=== PATIENT | male | born 1975 | race Caucasian/White ===

== ENCOUNTER 2017-10-24 10:06 | Emergency (ER) | payer OTHER ==
[~2017-10-24 10:06] MED LIST: METO25TA4 PO; [UNRECOGNIZED DRUG - REMARK]
[2017-10-24] MEDS ORDERED: ASPIRIN 81 MG TAB.CHEW PO ONE (10:30)
--- NOTE | 2017-10-24 10:35 | EKG ---
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 RI6.01 Electronically Signed On 10-27-2017 9:57:43 RETRIMMER by Bishop Rudd
[2017-10-24 10:40] LABS: BASO # 0.1 x10^3/uL (0.0-0.2); BASO % 1 % (0-3); EOS # 0.3 x10^3/uL (0.0-0.7); EOS % 4 % (0-3); HEMOGLOBIN 16.3 g/dL (13.0-17.5); LYMPH # 1.8 x10^3/uL (1.0-4.8); LYMPH % 22 % (24-48); MEAN CORPUSCULAR HEMOGLOBIN 30 pg (25-35); MEAN CORPUSCULAR HGB CONC 35 g/dL (31-37); MEAN CORPUSCULAR VOLUME 85 fL (79-100); MONO # 0.6 x10^3/uL (0.0-1.1); MONO % 8 % (0-9); NEUT # 5.3 x10^3uL (1.8-7.7); NEUT % 66 % (31-73); PLATELET COUNT 195 x10^3/uL (140-400); RED BLOOD COUNT 5.44 x10^6/uL (4.30-5.70); RED CELL DISTRIBUTION WIDTH 15.1 % (11.5-14.5); WHITE BLOOD COUNT 8.1 x10^3/uL (4.0-11.0)
[2017-10-24 11:02] LABS: CALCIUM 8.5 mg/dL (8.5-10.1); GFR 81.9; POTASSIUM 3.2 mmol/L (3.5-5.1)
--- NOTE | 2017-10-24 11:54 | RAD ---
EXAM: Chest 2 views. HISTORY: Chest pain, shortness of breath. COMPARISON: 12/07/2010. FINDINGS: Frontal and lateral views of the chest are obtained. There are no confluent infiltrates. There is no pneumothorax or pleural effusion. The heart is not enlarged. IMPRESSION: 1. No confluent infiltrates.
[2017-10-24] MEDS ORDERED: HEPARIN for IV BOLUS 10,000 UNIT/10 ML VIAL. IV ONE (12:00)
[2017-10-24] MEDS ORDERED: HEPARIN 25,000UTS/500ML PREMIX 500 ML IV PRN (12:00)
[2017-10-24] MEDS ORDERED: HEPARIN for IV BOLUS 10,000 UNIT/10 ML VIAL. IV PRN ×2 (12:00)
[2017-10-24 13:06] VITALS: BP 179/99
[2017-10-24] MEDS ORDERED: METOPROLOL TARTRATE 5 MG/5 ML VIAL. IV ONE (13:15)
--- NOTE | 2017-10-24 13:28 | PHYS DOC ---
Past History Past Medical History: Hypertension Past Surgical History: No Surgical History Smoking: Chew Alcohol Use: Occasionally Drug Use: None Adult General Chief Complaint Chief Complaint: CHEST PAIN HPI HPI Patient is a 41 year old M who presents with constant left-sided chest pressure associated with shortness of breath that started 2 days ago. He feels that his symptoms are worse with activity and improved with rest. He was a smoker but quit 15 years ago. His significant family history of heart disease with all immediate family members having heart attacks or heart disease diagnosed in the 40s or 50s. He does take blood pressure medications and is overweight. He has no other associated symptoms at this time. His no other exacerbating or relieving factors. Review of Systems Review of Systems Constitutional: Denies fever or chills [] Eyes: Denies change in visual acuity, redness, or eye pain [] HENT: Denies nasal congestion or sore throat [] Respiratory: Denies cough or shortness of breath [] Cardiovascular: No additional information not addressed in HPI [] GI: Denies abdominal pain, nausea, vomiting, bloody stools or diarrhea [] : Denies dysuria or hematuria [] Musculoskeletal: Denies back pain or joint pain [] Integument: Denies rash or skin lesions [] Neurologic: Denies headache, focal weakness or sensory changes [] Endocrine: Denies polyuria or polydipsia [] All other systems were reviewed and found to be within normal limits, except as documented in this note. Family History Family History Significant family medical history of cardiac disease Current Medications Current Medications Current Medications Medications (Trade) Dose Ordered Sig/Morales Start Time Stop Time Status Last Admin Dose Admin Aspirin (Children'S Aspirin) 324 mg 1X ONCE 10/24/17 10:30 10/24/17 10:41 DC 10/24/17 10:32 324 MG Heparin Sodium (Porcine) (Heparin Sodium) 1,000 unit PRN Q6HRS PRN 10/24/17 12:00 Heparin Sodium/ Dextrose 500 ml @ 0 mls/hr CONT PRN 10/24/17 12:00 10/24/17 12:54 36 MLS/HR Metoprolol Tartrate (Lopressor Vial) 5 mg 1X ONCE 10/24/17 13:15 10/24/17 13:16 DC 10/24/17 13:05 4 MG Allergies Allergies Allergies Coded Allergies Type Severity Reaction Last Updated Verified No Known Drug Allergies 08/27/13 No Physical Exam Physical Exam Constitutional: Well developed, well nourished, no acute distress, non-toxic appearance. [] HENT: Normocephalic, atraumatic, Eyes: EOMI, conjunctiva normal, no discharge. [] Neck: Normal range of motion, no tenderness, supple, no stridor. [] Cardiovascular:Heart rate regular rhythm, no murmur [] Lungs & Thorax: Bilateral breath sounds clear to auscultation [] Abdomen: Bowel sounds normal, soft, no tenderness, no masses, no pulsatile masses. [] Skin: Warm, dry, no erythema, no rash. [] Extremities: No tenderness, no cyanosis, no clubbing, ROM intact, no edema. [] Neurologic: Alert and oriented X 3, normal motor function, normal sensory function, no focal deficits noted. [] Psychologic: Affect normal, judgement normal, mood normal. [] Current Patient Data Vital Signs Vital Signs Date Time Temp Pulse Resp B/P (MAP) Pulse Ox O2 Delivery O2 Flow Rate FiO2 10/24/17 13:05 87 189/113 10/24/17 10:10 98.0 16 96 Room Air Lab Results Laboratory Tests Test 10/24/17 10:20 10/24/17 12:12 White Blood Count 8.1 x10^3/uL (4.0-11.0) Red Blood Count 5.44 x10^6/uL (4.30-5.70) Hemoglobin 16.3 g/dL (13.0-17.5) Hematocrit 46.0 % (39.0-53.0) Mean Corpuscular Volume 85 fL (79-100) Mean Corpuscular Hemoglobin 30 pg (25-35) Mean Corpuscular Hemoglobin Concent 35 g/dL (31-37) Red Cell Distribution Width 15.1 % (11.5-14.5) H Platelet Count 195 x10^3/uL (140-400) Neutrophils (%) (Auto) 66 % (31-73) Lymphocytes (%) (Auto) 22 % (24-48) L Monocytes (%) (Auto) 8 % (0-9) Eosinophils (%) (Auto) 4 % (0-3) H Basophils (%) (Auto) 1 % (0-3) Neutrophils # (Auto) 5.3 x10^3uL (1.8-7.7) Lymphocytes # (Auto) 1.8 x10^3/uL (1.0-4.8) Monocytes # (Auto) 0.6 x10^3/uL (0.0-1.1) Eosinophils # (Auto) 0.3 x10^3/uL (0.0-0.7) Basophils # (Auto) 0.1 x10^3/uL (0.0-0.2) Sodium Level 142 mmol/L (136-145) Potassium Level 3.2 mmol/L (3.5-5.1) L Chloride Level 106 mmol/L (98-107) Carbon Dioxide Level 29 mmol/L (21-32) Anion Gap 7 (6-14) Blood Urea Nitrogen 13 mg/dL (8-26) Creatinine 1.0 mg/dL (0.7-1.3) Estimated GFR (Cockcroft-Gault) 81.9 Glucose Level 263 mg/dL (70-99) H Calcium Level 8.5 mg/dL (8.5-10.1) Creatine Kinase 92 U/L (39-308) Creatine Kinase MB (Mass) 0.9 ng/mL (0.0-3.6) Creatine Kinase MB Relative Index 1.0 % (0-4) Troponin I Quantitative < 0.017 ng/mL (0-0.055) Prothrombin Time 10.3 SEC (9.4-11.4) Prothrombin Time INR 1.0 (0.9-1.1) PTT 23 SEC (23-33) EKG EKG Sinus rhythm with T-wave inversion in lead 1 and aVL. J-point changes noted throughout with elevation noted in the precordial leads particularly V1, V2, V3 and mildly in V4. Normal QRS interval. Radiology/Procedures Radiology/Procedures Chest x-ray Impressions: No acute disease Course & Med Decision Making Course & Med Decision Making Pertinent Labs and Imaging studies reviewed. (See chart for details) Cardiology was contacted by phone. His case was reviewed. Heparin was recommended. He was started on heparin per protocol and transfer to [place] in stable condition for further management. Dragon Disclaimer Dragon Disclaimer This electronic medical record was generated, in whole or in part, using a voice recognition dictation system. Departure Departure: Impression: Primary Impression: Unstable angina Disposition: 05 XFER OTHER Condition: STABLE Referrals: LLOYD SCHULER APRN (PCP) ORLY MORROW MD Oct 24, 2017 13:28
== END 2017-10-24 13:10 | disposition short-term general hospital (02) ==
LOC: ER 10:06
DX: I20.0 Unstable angina (principal); I10 Essential (primary) hypertension; F17.220 Nicotine dependence, chewing tobacco, uncomplicated
CPT/HCPCS: 36415; 71046; 80048; 82553; 84484; 85025; 85610; 85730; 93005; 96365; 96375; 96376; 99285; J1644; J3490

== ENCOUNTER 2019-09-07 18:33 | Inpatient (IN) | payer OTHER ==
[~2019-09-07] VITALS: Ht 175.3 cm; Wt 139.9 kg
[2019-09-07] MEDS ORDERED: NITROGLYCERIN SUBLINGUAL 0.4 MG BOTTLE OF 25. SL STA (19:04)
[2019-09-07] MEDS ORDERED: ASPIRIN 81 MG TAB.CHEW PO ONE (19:15)
[2019-09-07] MEDS ORDERED: FUROSEMIDE 40 MG/4 ML VIAL IVP ONE (19:30)
--- NOTE | 2019-09-07 19:40 | RAD ---
CHEST PA LATERAL Technique: PA and lateral views of the chest were obtained. Clinical History: Comparison: None. Findings: The heart and pulmonary vasculature appear within normal limits. Linear opacities in the lung bases are likely discoid atelectasis. The pleural margins are clear. Impression: No acute chest process is seen. Electronically signed by: Momo Rojo III, MD (09/07/2019 7:38 PM) [employer]
[2019-09-07 19:45] LABS: ALBUMIN 3.7 g/dL (3.4-5.0); ALBUMIN/GLOBULIN RATIO 0.9 (1.0-1.7); BASO # 0.1 x10^3/uL (0.0-0.2); BASO % 1 % (0-3); CALCIUM 8.9 mg/dL (8.5-10.1); CREATININE 0.9 mg/dL (0.7-1.3); EOS # 0.2 x10^3/uL (0.0-0.7); EOS % 3 % (0-3); GFR 91.7; HEMATOCRIT 48.1 % (39.0-53.0); HEMOGLOBIN 16.8 g/dL (13.0-17.5); LYMPH # 2.2 x10^3/uL (1.0-4.8); LYMPH % 25 % (24-48); MEAN CORPUSCULAR HEMOGLOBIN 30 pg (25-35); MEAN CORPUSCULAR HGB CONC 35 g/dL (31-37); MEAN CORPUSCULAR VOLUME 87 fL (79-100); MONO # 0.7 x10^3/uL (0.0-1.1); MONO % 7 % (0-9); NEUT # 5.7 x10^3uL (1.8-7.7); NEUT % 65 % (31-73); PLATELET COUNT 219 x10^3/uL (140-400); RED BLOOD COUNT 5.53 x10^6/uL (4.30-5.70); RED CELL DISTRIBUTION WIDTH 15.1 % (11.5-14.5); TOTAL BILIRUBIN 0.7 mg/dL (0.2-1.0); TOTAL PROTEIN 7.6 g/dL (6.4-8.2); WHITE BLOOD COUNT 8.9 x10^3/uL (4.0-11.0)
[2019-09-07 19:47] LABS: POTASSIUM 2.9 mmol/L (3.5-5.1)
[2019-09-07] MEDS ORDERED: POTASSIUM CHLORIDE 20 MEQ TABLET.ER. PO ONE ×2 (19:51→20:00)
--- NOTE | 2019-09-07 20:47 | PHYS DOC ---
Past History Past Medical History: High Cholesterol, Hypertension, Other Additional Past Medical Histor: PERIPHERAL EDEMA Past Surgical History: No Surgical History Smoking: Chew Alcohol Use: Occasionally Drug Use: None Adult General Chief Complaint Chief Complaint: SHORTNESS OF BREATH HPI HPI Patient is a 43-year-old male who presented to ER today for evaluation of chest pain, trouble breathing since yesterday. Patient felt like someone sitting on her chest. Patient has history hypertension, history of CHF, he is on Lasix for. She has history hypertension, denies history of diabetes, no cough, no fever. Patient denies any recent travel, no recent operation. Patient also said his blood pressure has been elevated even he took his blood pressure medication only. All other ROS is negative unless otherwise noted in HPI Review of Systems Review of Systems See above Current Medications Current Medications Current Medications Medications (Trade) Dose Ordered Sig/Morales Start Time Stop Time Status Last Admin Dose Admin Aspirin (Children'S Aspirin) 324 mg 1X ONCE 09/07/19 19:15 09/07/19 19:17 DC 09/07/19 19:24 324 MG Furosemide (Lasix) 60 mg 1X ONCE 09/07/19 19:30 09/07/19 19:31 DC 09/07/19 19:43 60 MG Nitroglycerin (Nitrostat) 0.4 mg PRN Q5MIN STAT 09/07/19 19:04 09/07/19 19:17 DC 09/07/19 19:25 0.4 MG Potassium Chloride (Klor-Con) 20 meq STK-MED ONCE 09/07/19 19:51 09/07/19 19:52 DC Allergies Allergies Allergies Coded Allergies Type Severity Reaction Last Updated Verified No Known Drug Allergies 08/27/13 No Physical Exam Physical Exam See above Constitutional: Well developed, well nourished, no acute distress, non-toxic appearance. OBESE. HENT: Normocephalic, atraumatic, bilateral external ears normal, oropharynx moist, no oral exudates, nose normal. [] Eyes: PERRLA, EOMI, conjunctiva normal, no discharge. [] Neck: Normal range of motion, no tenderness, supple, no stridor. [] Cardiovascular:Heart rate regular rhythm, no murmur [] Lungs & Thorax: Bilateral breath sounds clear to auscultation [] Abdomen: Bowel sounds normal, soft, no tenderness, no masses, no pulsatile masses. [] Skin: Warm, dry, no erythema, no rash. [] Back: No tenderness, no CVA tenderness. [] Extremities: No tenderness, no cyanosis, no clubbing, ROM intact, bilateral lower extremities with pitting edema. [] Neurologic: Alert and oriented X 3, normal motor function, normal sensory function, no focal deficits noted. [] Psychologic: Affect normal, judgement normal, mood normal. [] Current Patient Data Vital Signs Vital Signs Date Time Temp Pulse Resp B/P (MAP) Pulse Ox O2 Delivery O2 Flow Rate FiO2 09/07/19 19:26 65 22 202/116 (144) 95 Room Air 09/07/19 18:56 98.1 Lab Results Laboratory Tests Test 09/07/19 19:12 White Blood Count 8.9 x10^3/uL (4.0-11.0) Red Blood Count 5.53 x10^6/uL (4.30-5.70) Hemoglobin 16.8 g/dL (13.0-17.5) Hematocrit 48.1 % (39.0-53.0) Mean Corpuscular Volume 87 fL (79-100) Mean Corpuscular Hemoglobin 30 pg (25-35) Mean Corpuscular Hemoglobin Concent 35 g/dL (31-37) Red Cell Distribution Width 15.1 % (11.5-14.5) H Platelet Count 219 x10^3/uL (140-400) Neutrophils (%) (Auto) 65 % (31-73) Lymphocytes (%) (Auto) 25 % (24-48) Monocytes (%) (Auto) 7 % (0-9) Eosinophils (%) (Auto) 3 % (0-3) Basophils (%) (Auto) 1 % (0-3) Neutrophils # (Auto) 5.7 x10^3uL (1.8-7.7) Lymphocytes # (Auto) 2.2 x10^3/uL (1.0-4.8) Monocytes # (Auto) 0.7 x10^3/uL (0.0-1.1) Eosinophils # (Auto) 0.2 x10^3/uL (0.0-0.7) Basophils # (Auto) 0.1 x10^3/uL (0.0-0.2) Prothrombin Time 10.4 SEC (9.4-11.4) Prothrombin Time INR 1.0 (0.9-1.1) Activated Partial Thromboplast Time 23 SEC (23-33) Sodium Level 144 mmol/L (136-145) Potassium Level 2.9 mmol/L (3.5-5.1) *L Chloride Level 104 mmol/L (98-107) Carbon Dioxide Level 31 mmol/L (21-32) Anion Gap 9 (6-14) Blood Urea Nitrogen 11 mg/dL (8-26) Creatinine 0.9 mg/dL (0.7-1.3) Estimated GFR (Cockcroft-Gault) 91.7 BUN/Creatinine Ratio 12 (6-20) Glucose Level 118 mg/dL (70-99) H Calcium Level 8.9 mg/dL (8.5-10.1) Magnesium Level 2.0 mg/dL (1.8-2.4) Total Bilirubin 0.7 mg/dL (0.2-1.0) Aspartate Amino Transferase (AST) 76 U/L (15-37) H Alanine Aminotransferase (ALT) 152 U/L (16-63) H Alkaline Phosphatase 59 U/L (46-116) Troponin I Quantitative 0.024 ng/mL (0-0.055) RG-Bao-F-Type Natriuretic Peptide 391 pg/mL (0-124) H Total Protein 7.6 g/dL (6.4-8.2) Albumin 3.7 g/dL (3.4-5.0) Albumin/Globulin Ratio 0.9 (1.0-1.7) L Lipase 101 U/L (73-393) EKG EKG ekg rate of 62 bpm, sinus rhythm, no stemi.[] Radiology/Procedures Radiology/Procedures [][address] [address] IMAGING REPORT Signed PATIENT: KRISSY CASTELLON ACCOUNT: [id number] : 1975 LOCATION: ER AGE: 43 SEX: M EXAM STATUS: REG ER ORD. PHYSICIAN: ORLY TRAVIS DO REASON: Short of air, cough PROCEDURE: CHEST PA & LATERAL CHEST PA LATERAL Technique: PA and lateral views of the chest were obtained. Clinical History: Comparison: None. Findings: The heart and pulmonary vasculature appear within normal limits. Linear opacities in the lung bases are likely discoid atelectasis. The pleural margins are clear. Impression: No acute chest process is seen. Electronically signed by: Tata Mcgovern III, MD (09/07/2019 7:38 PM) [facility] DICTATED AND SIGNED BY: TATA MCGOVERN III, MD DATE: 09/07/191937 CC: LLOYD SCHULER APRN; ORLY TRAVIS DO ~ Course & Med Decision Making Course & Med Decision Making Pertinent Labs and Imaging studies reviewed. (See chart for details) [] Dragon Disclaimer Dragon Disclaimer This electronic medical record was generated, in whole or in part, using a voice recognition dictation system. Departure Departure: Impression: Primary Impression: Chest pain Additional Impressions: Hypokalemia HTN (hypertension) Disposition: ADMITTED INPATIENT Admitting Physician: Orly Fontenot Condition: IMPROVED Referrals: LLOYD SCHULER APRN (PCP) HEART Score for Chest Pain PTs The HEART Score for CP Pts HEART Score for Chest Pain: HEART Score for Chest Pain Response (Comments) Value History Highly Suspicious 2 ECG Nonspecific Repolarizatio 1 Age < 45 0 Risk Factors >3 Risk Factors or Hx CAD 2 Troponin < Normal Limit 0 Total 5 Risk Factors: Risk Factors: DM, Current or recent (<one month) smoker, HTN, HLP, family history of CAD, obesity. Risk Scores: Score 0 - 3: 2.5% MACE over next 6 weeks - Discharge Home Score 4 - 6: 20.3% MACE over next 6 weeks - Admit for Clinical Observation Score 7 - 10: 72.7% MACE over next 6 weeks - Early Invasive Strategies Problem Qualifiers ORLY TRAVIS DO Sep 07, 2019 20:47
[2019-09-07] MEDS ORDERED: METO-247 PO (20:59)
[2019-09-07] MEDS ORDERED: ATOR20TA58 PO (21:00)
[2019-09-07] MEDS ORDERED: OMEP40CA45 PO (21:00)
[2019-09-07] MEDS ORDERED: NIFE30TA95 PO (21:01)
[2019-09-07] MEDS ORDERED: METF10007 PO (21:01)
[2019-09-07] MEDS ORDERED: POTA20TA4 PO (21:01)
[2019-09-07] MEDS ORDERED: HYDR-2868 PO (21:02)
[2019-09-07] MEDS ORDERED: HYDR-2145 PO (21:02)
[2019-09-07] MEDS ORDERED: CLON-276 PO (21:02)
[2019-09-07] MEDS ORDERED: LOSA100T14 PO (21:03)
[2019-09-07 22:05] VITALS: BP 195/117
[2019-09-07] MEDS ORDERED: hydrALAZINE 20 MG/ML VIAL. IV PRN (22:45)
[2019-09-07] MEDS ORDERED: ZOLPIDEM 5 MG TABLET. PO PRN ×2 (22:45→23:00)
[2019-09-07] MEDS ORDERED: ELECTROLYTE (ICU) PROTOCOL. MC PRN (22:45)
[2019-09-07] MEDS: hydrALAZINE 25 MG TABLET PO SCH (22:54)
[2019-09-07] MEDS: cloNIDine HCL 0.2 MG TABLET PO SCH (22:55)
[2019-09-07] MEDS: ENOXAPARIN 40 MG/0.4 ML SYRINGE. SQ SCH (22:56)
[2019-09-07] MEDS ORDERED: LORazepam 0.5 MG TABLET PO PRN (23:00)
[2019-09-08] VITALS (8 sets, daily range): BP systolic 136–183; BP diastolic 83–110
[2019-09-08] MEDS: ACETAMINOPHEN 500 MG TABLET PO PRN ×3 (00:30→15:23)
--- NOTE | 2019-09-08 01:08 | HP ---
ADMIT DATE: 09/07/2019 HISTORY OF PRESENT ILLNESS: The patient is a 43-year-old male who came in through the Emergency Room. The patient has been complaining of chest pain, trouble breathing since 1 day prior to being seen, felt like someone was sitting on his chest, has a previous history of multiple contributing factors. The patient was seen and admitted for rule-out GA protocol. He was also noted to have significant peripheral edema and the patient was admitted for rule-out GA protocol and further evaluation with consultation with Cardiology and the like. PAST MEDICAL HISTORY: Includes that of hypercholesterolemia, hypertension. The patient has had a history of viral meningitis, sleep apnea, uses a CPAP machine. PAST SURGICAL HISTORY: No previous surgical history. FAMILY HISTORY: Positive for hypercholesterolemia and hypertension. ALLERGIES: The patient has no known drug allergies. FAMILY HISTORY: Mother has history of coronary artery disease, angioplasty with stents x2, maternal uncle with coronary artery disease. SOCIAL HISTORY: The patient denies smoking, but does chew tobacco and the patient also is a full code. MEDICATIONS: The patient's medications presently include Lipitor 20, clonidine 0.2, hydralazine 25 b.i.d., metoprolol 100 mg daily, nifedipine 30 mg, losartan 100, potassium chloride 20, hydrochlorothiazide 25, omeprazole 40 and metformin 1000. REVIEW OF SYSTEMS: Outside of the chest pressure, the patient denies any headaches, visual changes, blurred vision, double vision. Does have some shortness of breath, has chest pressure relieved with nitroglycerin. The patient denies any abdominal pain. Denies nausea, vomiting, melena, hematochezia, hematemesis and neurologically stable. PHYSICAL EXAMINATION: GENERAL: This is a pleasant white male. VITAL SIGNS: Blood pressure 174/102, respiratory rate 20, pulse 65, afebrile, oxygen saturation 95% on room air. HEENT: The patient's head was atraumatic, normocephalic. Eyes: PERRLA without jaundice. The mouth and throat were normal. NECK: Supple, without JVD or thyromegaly. LUNGS: Diminished, but clear. CARDIOVASCULAR: Regular sinus rhythm, S1, S2, without murmur, rub, thrill, or extra heart sound. ABDOMEN: Soft, nontender, no rebound or guarding. Positive bowel sounds, no hepatosplenomegaly. No bruits noted. EXTREMITIES: No clubbing, cyanosis, no edema. Pulses noted distally, 2/4. NEUROLOGIC: The patient was alert and oriented x3. Speech fluent, spontaneous, appropriate. Cranial nerves 2-12 are grossly intact. LABORATORY DATA: Sodium and potassium 144/2.9, the latter being the potassium. Blood sugar 118. Elevated liver enzymes, 76 and 152, AST and ALT respectively. Troponin 0.024. BNP of 391. D-dimer pending. PLAN: The patient will be admitted for rule-out GA protocol. Multiple risk factors including that of a severe hypertension as well as hypercholesterolemia, hypokalemia, chewing tobacco. We will make further evaluation and then make further assessment on him as indicated. ORLY FARIAS MD DR: DUNCAN/martha JOB#: [id number] / [id number]
[2019-09-08] MEDS: hydrALAZINE 20 MG/ML VIAL. IV PRN ×3 (02:54→11:02)
--- NOTE | 2019-09-08 05:17 | EKG ---
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
[2019-09-08 07:00] LABS: ALBUMIN 3.5 g/dL (3.4-5.0); DIRECT BILIRUBIN 0.2 mg/dL (0.0-0.2); TOTAL BILIRUBIN 0.6 mg/dL (0.2-1.0); TOTAL PROTEIN 7.2 g/dL (6.4-8.2)
[2019-09-08 07:12] LABS: CLARITY,URINE CLEAR; COLOR,URINE YELLOW
[2019-09-08 07:13] LABS: BACTERIA,URINE 0 /HPF (0-FEW); BILIRUBIN,URINE NEG (NEG); GLUCOSE,URINE NEG (NEG); HYALINE CASTS, URINE OCC /HPF; NITRITE,URINE NEG (NEG); RBC,URINE 0 /HPF (0-2); UROBILINOGEN,URINE 0.2 mg/dL (0.2 mg/dL)
[2019-09-08] MEDS ORDERED: CONTRAST GIVEN MC PRN (07:45)
[2019-09-08] MEDS ORDERED: IOHEXOL 350 MG/ML 100 ML VIAL. IV ONE (07:45)
[2019-09-08] MEDS ORDERED: metFORMIN 500 MG TABLET PO SCH (08:00)
[2019-09-08] MEDS: PANTOPRAZOLE 40 MG TABLET. PO SCH (08:18)
[2019-09-08] MEDS: POTASSIUM CHLORIDE 20 MEQ TABLET.ER. PO SCH ×2 (08:20→08:29)
[2019-09-08] MEDS: hydrALAZINE 25 MG TABLET PO SCH ×2 (08:21→20:15)
[2019-09-08] MEDS: METOPROLOL SUCC 24HR ER 50 MG TAB.ER.24H. PO SCH (08:22)
[2019-09-08] MEDS: hydroCHLOROthiazide 25 MG TABLET PO SCH (08:22)
[2019-09-08] MEDS: cloNIDine HCL 0.2 MG TABLET PO SCH ×2 (08:23→20:15)
[2019-09-08] MEDS: LOSARTAN 50 MG TABLET. PO SCH (08:23)
[2019-09-08] MEDS: ENOXAPARIN 40 MG/0.4 ML SYRINGE. SQ SCH ×2 (08:24→20:15)
[2019-09-08] MEDS: ATORVASTATIN CALCIUM 20 MG TABLET PO SCH (08:30)
--- NOTE | 2019-09-08 08:45 | RAD ---
Examination: CT ANGIOGRAPHY CHEST History: Elevated d-dimer Comparison/Correlation: None Findings: Axial images of the chest were obtained following IV contrast according to pulmonary arteriography protocol. Sagittal and coronal reformatted images were provided. Maximum intensity projection images were provided. There is a 2 cm diameter left thyroid lobe nodule. 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 Opacification of the pulmonary arterial vasculature is adequate. No pulmonary thromboembolic disease identified. There is a borderline right hilar lymph node measuring up to 1 cm short axis diameter. Thoracic aorta is unremarkable. Right posterior basilar calcified granuloma is present. Pleural thickening at the right posterior basal aspect noted. Bulla involving the right upper lung noted. Minimal left posterior basilar bulla noted. No pleural effusion or pneumothorax. Low-density lesion in the right medial superior pole is not fully included on this exam probably representing a cyst. Bony structures are unremarkable. Impression: No pulmonary arterial thromboembolic disease. No infiltrate. Borderline size right hilar lymph node. Left thyroid nodule. Ultrasound correlation is recommended. PQRS Compliance Statement: One or more of the following individualized dose reduction techniques were utilized for this examination: 1. Automated exposure control 2. Adjustment of the mA and/or kV according to patient size 3. Use of iterative reconstruction technique Electronically signed by: Corbin Choi MD (09/08/2019 8:42 AM) [facility]
--- NOTE | 2019-09-08 08:51 | PDOC2 ---
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 Fontenot SOURCE Source: Chart review, Patient HPI History of Present Illness This is a 43 yo male who presented secondary to chest pain and shortness of breath. Has been short of breath for the last 4 days. Associated with LE edema and orthopnea. Over the last couple of days. has developed sharping pain in his central chest. Has been intermittent. Seems to occur more with activity. Has a history of CHF. Previously followed with Dr. Daigle. Stress test about a year ago he reports as normal. No previous heart cath. Has very strong h/o premature heart disease on fathers side and also has heart disease on mothers side. PAST MEDICAL HISTORY Cardiovascular: CHF, HTN, hyperipidemia Pulmonary: Other (SUMMER) Endocrine: Diabetes PAST SURGICAL HISTORY Past Surgical History vasectomy FAMILY HISTORY Family History: Coronary Artery Disease, Diabetes, Heart Disease, High Cholestrol, Hypertension SOCIAL HISTORY Smoke: No ALCOHOL: none Drugs: None Lives: Alone CURRENT MEDICATIONS Current Medications Current Medications Aspirin (Children'S Aspirin) 324 mg 1X ONCE PO Last administered on 09/07/19at 19:24; Start 09/07/19 at 19:15; Stop 09/07/19 at 19:17; Status DC Nitroglycerin (Nitrostat) 0.4 mg PRN Q5MIN STAT SL Last administered on 09/07/19at 19:25; Start 09/07/19 at 19:04; Stop 09/07/19 at 19:17; Status DC Furosemide (Lasix) 60 mg 1X ONCE IVP Last administered on 09/07/19at 19:43; Start 09/07/19 at 19:30; Stop 09/07/19 at 19:31; Status DC Potassium Chloride (Klor-Con) 80 meq 1X ONCE PO Last administered on 09/07/19at 19:54; Start 09/07/19 at 20:00; Stop 09/07/19 at 20:01; Status DC Potassium Chloride (Klor-Con) 20 meq STK-MED ONCE PO ; Start 09/07/19 at 19:51; Stop 09/07/19 at 19:52; Status DC Hydralazine HCl (Apresoline) 10 mg PRN Q4HRS PRN IV ELEVATED BP, SEE COMMENTS; Start 09/07/19 at 22:45; Stop 09/07/19 at 22:58; Status DC Enoxaparin Sodium (Lovenox 40mg Syringe) 40 mg BID SQ Last administered on 09/08/19at 08:24; Start 09/07/19 at 23:00 Atorvastatin Calcium (Lipitor) 20 mg DAILY PO Last administered on 09/08/19at 08:30; Start 09/08/19 at 09:00 Clonidine HCl (Catapres) 0.2 mg BID PO Last administered on 09/08/19at 08:23; Start 09/07/19 at 23:00 Hydralazine HCl (Apresoline) 25 mg BID PO Last administered on 09/08/19at 08:21; Start 09/07/19 at 23:00 Hydrochlorothiazide (Hydrodiuril) 25 mg DAILY PO Last administered on 09/08/19at 08:22; Start 09/08/19 at 09:00 Nifedipine (Procardia Xl) 90 mg DAILY PO Last administered on 09/08/19at 08:19; Start 09/08/19 at 09:00 Potassium Chloride (Klor-Con) 20 meq DAILY PO Last administered on 09/08/19at 08:29; Start 09/08/19 at 09:00 Losartan Potassium (Cozaar) 100 mg DAILY PO Last administered on 09/08/19at 08:23; Start 09/08/19 at 09:00 Metformin HCl (Glucophage) 1,000 mg BIDWMEALS PO ; Start 09/08/19 at 08:00; Stop 09/08/19 at 07:34; Status DC Metoprolol Succinate (Toprol Xl) 150 mg DAILY PO Last administered on 09/08/19at 08:22; Start 09/08/19 at 09:00 Pantoprazole Sodium (Protonix) 40 mg DAILYAC PO Last administered on 09/08/19at 08:18; Start 09/08/19 at 07:30 Info (Icu Electrolyte Protocol) 1 ea CONT PRN PRN MC PER PROTOCOL; Start 09/07/19 at 22:45 Zolpidem Tartrate (Ambien) 5 mg PRN QHS PRN PO INSOMNIA, MAY REPEAT IN 1HR; Start 09/07/19 at 22:45; Stop 09/07/19 at 22:58; Status DC Zolpidem Tartrate (Ambien) 5 mg PRN QHS PRN PO INSOMNIA, MAY REPEAT IN 1HR; Start 09/07/19 at 23:00 Lorazepam (Ativan) 0.5 mg PRN TID PRN PO ANXIETY / AGITATION; Start 09/07/19 at 23:00 Hydralazine HCl (Apresoline) 10 mg PRN Q3HRS PRN IV ELEVATED BP, SEE COMMENTS Last administered on 09/08/19at 06:06; Start 09/07/19 at 23:00 Influenza Virus Vaccine Quadrival (Afluria Quad 2019-20 (3yr Up) Syringe) 0.5 ml ONCE ONCE VAX IM Last administered on 09/08/19at 08:38; Start 09/08/19 at 09:00; Stop 09/08/19 at 09:01 Acetaminophen (Tylenol) 500 mg PRN Q6HRS PRN PO PAIN / TEMP Last administered on 09/08/19at 08:22; Start 09/08/19 at 00:30 Iohexol (Omnipaque 350 Mg/ml) 100 ml 1X ONCE IV Last administered on 09/08/19at 07:50; Start 09/08/19 at 07:45; Stop 09/08/19 at 07:46; Status DC Info (Do NOT chart on this entry -- for MONITORING) 1 each PRN DAILY PRN MC SEE COMMENTS; Start 09/08/19 at 07:45; Stop 09/10/19 at 07:44 Metformin HCl (Glucophage) 1,000 mg BIDWMEALS PO ; Start 09/10/19 at 08:00 Active Scripts Active Reported Losartan Potassium 100 Mg Tablet 100 Mg PO DAILY Clonidine Hcl 0.2 Mg Tablet 1 Tab PO BID Hydralazine Hcl 25 Mg Tablet 1 Tab PO BID Hydrochlorothiazide Tablet (Hydrochlorothiazide) 25 Mg Tablet 25 Mg PO DAILY Klor-Con M20 (Potassium Chloride) 20 Meq Tab.er.prt 1 Tab PO DAILY 30 Days Metformin Hcl 1,000 Mg Tablet 1 Tab PO BID Nifedipine Er (Nifedipine) 30 Mg Tab.er.24 90 Mg PO DAILY Atorvastatin Calcium 20 Mg Tablet 1 Tab PO DAILY Omeprazole 40 Mg Capsule.dr 1 Cap PO DAILY Metoprolol Succinate ( Xl ) (Metoprolol Succinate) 100 Mg Tab.er.24h 1.5 Tab PO DAILY [pt unable to recall] ALLERGIES Allergies: Coded Allergies: No Known Drug Allergies (Unverified , 08/27/13) ROS Review of Systems 14 point ROS conducted with pertinent positives noted above in HPI PHYSICAL EXAM General: Alert, Oriented X3, Cooperative, No acute distress HEENT: Atraumatic, Mucous membr. moist/pink Lungs: Other (bibasilar crackles ) Heart: Regular rate, Normal S1, Normal S2 Abdomen: Soft, Other (obese ) Extremities: Other (1-2+ bilateral LE edema ) Skin: No breakdown Neuro: Normal speech, Sensation intact Psych/Mental Status: Mental status NL, Mood NL MUSCULOSKELETAL: No joint tenderness VITALS Vital Signs Vital Signs Date Time Temp Pulse Resp B/P (MAP) Pulse Ox O2 Delivery O2 Flow Rate FiO2 09/08/19 08:23 68 205/117 09/08/19 06:21 97.3 25 95 Room Air LABS LABS Laboratory Tests Test 09/07/19 19:12 09/08/19 00:45 09/08/19 05:50 09/08/19 06:25 White Blood Count 8.9 x10^3/uL (4.0-11.0) Red Blood Count 5.53 x10^6/uL (4.30-5.70) Hemoglobin 16.8 g/dL (13.0-17.5) Hematocrit 48.1 % (39.0-53.0) Mean Corpuscular Volume 87 fL (79-100) Mean Corpuscular Hemoglobin 30 pg (25-35) Mean Corpuscular Hemoglobin Concent 35 g/dL (31-37) Red Cell Distribution Width 15.1 % (11.5-14.5) Platelet Count 219 x10^3/uL (140-400) Neutrophils (%) (Auto) 65 % (31-73) Lymphocytes (%) (Auto) 25 % (24-48) Monocytes (%) (Auto) 7 % (0-9) Eosinophils (%) (Auto) 3 % (0-3) Basophils (%) (Auto) 1 % (0-3) Neutrophils # (Auto) 5.7 x10^3uL (1.8-7.7) Lymphocytes # (Auto) 2.2 x10^3/uL (1.0-4.8) Monocytes # (Auto) 0.7 x10^3/uL (0.0-1.1) Eosinophils # (Auto) 0.2 x10^3/uL (0.0-0.7) Basophils # (Auto) 0.1 x10^3/uL (0.0-0.2) Prothrombin Time 10.4 SEC (9.4-11.4) Prothromb Time International Ratio 1.0 (0.9-1.1) Activated Partial Thromboplast Time 23 SEC (23-33) D-Dimer (Tanisha) 0.51 mg/L (0.00-0.50) Sodium Level 144 mmol/L (136-145) Potassium Level 2.9 mmol/L (3.5-5.1) Chloride Level 104 mmol/L (98-107) Carbon Dioxide Level 31 mmol/L (21-32) Anion Gap 9 (6-14) Blood Urea Nitrogen 11 mg/dL (8-26) Creatinine 0.9 mg/dL (0.7-1.3) Estimated GFR (Cockcroft-Gault) 91.7 BUN/Creatinine Ratio 12 (6-20) Glucose Level 118 mg/dL (70-99) Calcium Level 8.9 mg/dL (8.5-10.1) Magnesium Level 2.0 mg/dL (1.8-2.4) Total Bilirubin 0.7 mg/dL (0.2-1.0) 0.6 mg/dL (0.2-1.0) Aspartate Amino Transf (AST/SGOT) 76 U/L (15-37) 79 U/L (15-37) Alanine Aminotransferase (ALT/SGPT) 152 U/L (16-63) 148 U/L (16-63) Alkaline Phosphatase 59 U/L (46-116) 57 U/L (46-116) Troponin I Quantitative 0.024 ng/mL (0-0.055) 0.024 ng/mL (0-0.055) 0.023 ng/mL (0-0.055) GB-Tih-R-Type Natriuretic Peptide 391 pg/mL (0-124) Total Protein 7.6 g/dL (6.4-8.2) 7.2 g/dL (6.4-8.2) Albumin 3.7 g/dL (3.4-5.0) 3.5 g/dL (3.4-5.0) Albumin/Globulin Ratio 0.9 (1.0-1.7) Lipase 101 U/L (73-393) Direct Bilirubin 0.2 mg/dL (0.0-0.2) Urine Collection Type Unknown Urine Color Yellow Urine Clarity Clear Urine pH 7.0 Urine Specific [place] 1.025 Urine Protein 100 mg/dl (NEG-TRACE) Urine Glucose (UA) Neg mg/dL (NEG) Urine Ketones (Stick) Neg mg/dL (NEG) Urine Blood Neg (NEG) Urine Nitrite Neg (NEG) Urine Bilirubin Neg (NEG) Urine Urobilinogen Dipstick 0.2 mg/dL (0.2 mg/dL) Urine Leukocyte Esterase Neg (NEG) Urine RBC 0 /HPF (0-2) Urine WBC 1-4 /HPF (0-4) Urine Squamous Epithelial Cells None /LPF Urine Bacteria 0 /HPF (0-FEW) Urine Hyaline Casts Occ /HPF Urine Mucus Slight /LPF ASSESSMENT/PLAN Assessment/Plan 1. Chest pain, mixed features. EKG with nonspecific ST-T wave changes. Trop peak 0.024. Possibly type II, demand ischemic in the setting of #2 and 3 2. Acute on chronic probable diastolic CHF 3. Accelerated Hypertension; remains elevated 4. Hyperlipidemia 5. Diabetes, II 6. Hypokalemia 7. Elevated LFTs Recommendations Repeat labs TSH, lipids Replace K as warranted Diuresis Echo to assess LV systolic function Will need further ischemic eval, possible as an outpatient Further pending above. FERNY CLARKE MD 09/08/19 5880: CARDIAC CONSULT ASSESSMENT/PLAN Assessment/Plan Patient seen and examined Chest pain. Now resolved. EKG with nonspecific ST-T wave changes. Troponin peak of 0.24 with a creatinine of 1.1. Echocardiogram shows normal left ventricular size and systolic function with mild to moderate left ventricular hypertrophy. We'll continue medical treatment. Recheck lab in EKG in the morning. If patient remains stable overnight with no significant changes in the morning with consider outpatient ischemia workup. If further chest pain or changes in EKG would consider catheterization. Mild diastolic heart failure. Echo with ejection fraction of 60-65% with mild to moderate left ventricular hypertrophy. Mild diuresis. Hypertension. Now under better control. Hyperlipidemia. We'll check statin treatment. Diabetes mellitus. As per the primary service. Thank you for allowing us to participate in the care of your patient. ASMITA DASH APRN Sep 08, 2019 08:51 FERNY CLARKE MD Sep 08, 2019 16:45
[2019-09-08] MEDS ORDERED: FLU VAX QS 2019-20 (36MOS+)/PF 0.5 ML SYRINGE. VAX IM ONE (09:00)
[2019-09-08 10:23] LABS: ALBUMIN 3.4 g/dL (3.4-5.0); ALBUMIN/GLOBULIN RATIO 0.9 (1.0-1.7); CREATININE 1.1 mg/dL (0.7-1.3); GFR 72.7; POTASSIUM 3.3 mmol/L (3.5-5.1); TOTAL BILIRUBIN 0.7 mg/dL (0.2-1.0); TOTAL PROTEIN 7.2 g/dL (6.4-8.2)
[2019-09-08] MEDS ORDERED: POTASSIUM CHLORIDE 20 MEQ TABLET.ER. PO ONE (11:00)
[2019-09-08] MEDS: FUROSEMIDE 40 MG/4 ML VIAL IVP SCH ×2 (11:00→15:51)
[2019-09-08] MEDS: ASPIRIN ENTERIC COATED 81 MG TABLET.DR. PO SCH (11:00)
[2019-09-08] MEDS ORDERED: DEXTROSE 50% 25 GM / 50ML DISP.SYRIN. IV PRN (11:15)
[2019-09-08] MEDS: INSULIN LISPRO 300 UNITS/3 ML VIAL. SQ SCH ×2 (12:48→17:15)
--- NOTE | 2019-09-08 15:35 | HP ---
ADMIT DATE: HISTORY OF PRESENT ILLNESS: The patient is a 43-year-old male patient who came to the Emergency Room with increasing shortness of breath that has been going on for the last few days, worse in particular in the last 2 days. He complained of some chest pain, described as heavy weight and somebody sitting on his chest. He also had complained of orthopnea, paroxysmal nocturnal dyspnea. He denied any cough, phlegm, or hemoptysis. He also complained that his blood pressure has been markedly elevated, even if he took his blood pressure medication. He said that he is not taking any high sodium diet and denied taking any nonsteroidal anti-inflammatory medication and stated that he was compliant with his medication. He was extensively investigated in the Emergency Room and his blood pressure was extremely high and at fact, when he arrived to the Emergency Room, his blood pressure was 212/137. His lab work showed that he has mild hypokalemia and his liver enzymes were slightly elevated. His chest x-ray showed that the heart and pulmonary vasculature appeared within normal limits. Linear opacities in the lung bases are likely discoid that the pleural margins are clear. His D-dimer was slightly high, so he underwent CT angio of the chest, which showed no pulmonary arterial thromboembolic disease, no infiltrate, borderline size right hilar lymph nodes, left thyroid nodule and ultrasound correlation is recommended. The patient was admitted with diagnoses of chest pain, accelerated hypertension and hypokalemia. His first set of cardiac enzyme was slightly elevated at 0.024 and therefore, we will do two more sets of cardiac enzyme and consult the Cardiology team for evaluation and treatment. PAST MEDICAL HISTORY: Significant for hypertension, hyperlipidemia, type 2 diabetes mellitus, nonalcoholic steatohepatitis, morbid obesity, obstructive sleep apnea. PAST SURGICAL HISTORY: Significant for vasectomy. ALLERGIES: He has no known drug allergies. MEDICATIONS: He is currently on following medications: He is on enteric-coated aspirin 81 mg once a day, atorvastatin calcium 20 mg once a day. He is on clonidine 0.2 mg twice a day, hydralazine 25 mg twice a day, metoprolol succinate 150 mg once a day, nifedipine 30 mg and 90 mg once a day, losartan potassium 100 mg once a day, potassium chloride 20 mEq once a day, hydrochlorothiazide 25 mg daily and omeprazole 40 mg once a day. FAMILY HISTORY: He has one brother and sister older and his sister is diabetic. His mother is still alive and has coronary artery bypass graft surgery. Father is at the age of 60 because of myocardial infarction. SOCIAL HISTORY: , has 5 daughters and 1 son. He quit smoking about 12 years ago. He drinks alcohol occasionally. 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 REVIEW OF SYSTEMS: The patient denied any blurring of vision, cataract, glaucoma or macular degeneration. Denied any earache, tinnitus or sensorineural deafness. Denied any nosebleeds, stuffy nose or postnasal drip. Denied any sore throat, sore tongue, toothache, hoarseness of voice or difficulty swallowing. Denied any nausea, vomiting, diarrhea or constipation. Denied any hematemesis, melena or hematochezia. Denied any dysuria, frequency or hematuria. He did complain of chest pain and shortness of breath. He also complained of orthopnea, paroxysmal nocturnal dyspnea, but denied any cough, phlegm or hemoptysis. Denied any dizziness, lightheadedness, or vertigo. PHYSICAL EXAMINATION: GENERAL: On arrival to the Emergency Room, he looked slightly tachypneic, but there is no pallor, jaundice, cyanosis or thyromegaly. No jugular venous distention. No lower limb edema. VITAL SIGNS: His heart rate was 66, blood pressure was 212/137, temperature was 98.1, respiratory rate 24 and oxygen saturation was 96% on room air. HEAD, EYES, EARS, NOSE AND THROAT: Showed normocephalic, atraumatic. NECK: Supple. HEART: Showed normal first and second heart sounds. No gallop or murmur. CHEST: Clear to auscultation. No crepitation or rhonchi. ABDOMEN: Distended, soft, nontender. No guarding or rigidity. No organomegaly. All hernial orifice intact. Bowel sounds normal. NEUROLOGIC: He is awake, alert, responding appropriately. All cranial nerves intact. EXTREMITIES: He moves extremities without difficulty. He ambulates without assistance or assistive devices. LABORATORY DATA: His lab work on arrival showed a serum sodium 144, potassium 2.9, chloride 104, bicarbonate 31, anion gap of 9, BUN 11, creatinine 0.9, estimated GFR was 92 mL per minute, his glucose 119, calcium was 8.9, magnesium 2. Total bilirubin and alkaline phosphatase were normal. AST, ALT were elevated. His beta natriuretic peptide was 391. Total protein was 7.6, albumin was 3.7. Serum lipase was 101. Troponin I was 0.024. His white cell count was 8900, hemoglobin 17, hematocrit 48, MCV 87 and platelet count 219,000. His prothrombin time, INR and aPTT were normal. D-dimer was high at 0.51. Urinalysis showed the urine was yellow, clear with a pH of 7, specific gravity 1.025 with large amount of protein. The urine was negative for glucose, ketones, blood, nitrite and bilirubin as well as leukocyte esterase. There are no rbc's, few wbc's and no bacteria. His chest x-ray showed that the heart and pulmonary vasculature appeared within normal limits. Linear opacities in the lung bases are likely discoid atelectasis. The pleural margins are clear. Given he has elevated D-dimer, he underwent CT angiography of the chest, which showed no pulmonary arterial thromboembolic disease, no infiltrate, borderline size right hilar lymphadenopathy and left thyroid nodule and ultrasound correlation is recommended. ASSESSMENT AND PLAN: The patient was admitted and was continued on all his medication. We will do two more sets of cardiac enzyme. We will consult the Cardiology team for further evaluation and treatment. CHALO JIN MD DR: PEACE/martha JOB#: [id number] / [id number]
--- NOTE | 2019-09-08 16:32 | CARD ---
MR#: [id number] Date of Study: 09/08/2019 Ordering Physician: ORLY FARIAS, Referring Physician: ORLY FARIAS, Tech: Danielle Salazar APPROVED REPORT EXAM: Two-dimensional and M-mode echocardiogram with Doppler and color Doppler. Other Information Quality : FairHR: 73bpm INDICATION Dyspnea Hypertension/HCVD Chest Pain Congestive Heart Failure RISK FACTORS Hypertension Hyperlipidemia 2D DIMENSIONS RVDd2.2 (2.9-3.5cm)Left Atrium(2D)3.8 (1.6-4.0cm) IVSd1.4 (0.7-1.1cm)Aortic Root(2D)2.9 (2.0-3.7cm) LVDd5.8 (3.9-5.9cm)LVOT Diameter2.1 (1.8-2.4cm) PWd1.3 (0.7-1.1cm)LVDs2.7 (2.5-4.0cm) FS (%) 53.4 %SV137.2 ml LVEF(%)83.8 (>50%) Aortic Valve AoV Peak Nikos.143.4cm/sAoV VTI29.0cm AO Peak GR.8.2mmHgLVOT Peak Nikos.130.0cm/s LVOT VTI 27.57cmAO Mean GR.5mmHg ELÍAS (VMAX)3.55uu2PAU (VTI)3.40cm2 Mitral Valve MV E Zljsvtcf48.3cm/sMV DECEL WPRF575ro MV A Odfjweoe12.5cm/sE/A Ratio1.1 Pulmonary Valve PV Peak Pvkwdhru545.2cm/sPV Peak Grad.4mmHg Pulmonary Vein S1 Smwkxobj56.0cm/sD2 Njpeskuy77.0cm/s LEFT VENTRICLE The left ventricle is normal size. There is mild to moderate concentric left ventricular hypertrophy. The left ventricular systolic function is normal. The Ejection Fraction is 60-65%. There is normal L V segmental wall motion. RIGHT VENTRICLE The right ventricle is normal size. There is normal right ventricular wall thickness. The right ventr icular systolic function is normal. ATRIA The left atrium size is normal. The right atrium size is normal. The interatrial septum is intact wit h no evidence for an atrial septal defect or patent foramen ovale as noted on 2-D or Doppler imaging. AORTIC VALVE The aortic valve is normal in structure and function. Doppler and Color Flow revealed no significant aortic regurgitation. There is no significant aortic valvular stenosis. MITRAL VALVE The mitral valve is normal in structure and function. There is no evidence of mitral valve prolapse. There is no mitral valve stenosis. Doppler and Color Flow revealed no mitral valve regurgitation note d. TRICUSPID VALVE The tricuspid valve is not well visualized. Doppler and Color Flow revealed no tricuspid valve regurg itation noted. There is no tricuspid valve stenosis. PULMONIC VALVE Doppler and Color Flow revealed no pulmonic valvular regurgitation. GREAT VESSELS The aortic root is normal in size. The IVC was not well visualized. PERICARDIAL EFFUSION There is no evidence of significant pericardial effusion. Critical Notification Critical Value: No <Conclusion> The left ventricular systolic function is normal. The Ejection Fraction is 60-65%. There is normal LV segmental wall motion. There is no evidence of significant pericardial effusion. Signed by : Aroldo Zaidi, Electronically Approved : 09/08/2019 16:31:58
--- NOTE | 2019-09-08 17:12 | RAD ---
EXAM: ABDOMINAL ULTRASOUND. HISTORY: Elevated liver enzymes. COMPARISON: On [address] CT. FINDINGS: Sonographic evaluation of the abdomen was performed. Increased hepatic parenchymal echogenicity is consistent with steatosis. The liver is enlarged spanning 22.4 cm. Sensitivity is decreased in this setting, but no focal lesions are seen. The spleen measures 13.5 cm. The gallbladder is unremarkable without evidence of stones, wall thickening or pericholecystic fluid. There is no sonographic Dong sign. The common duct is not well-visualized but appears to measure approximately 8 mm. The visualized portions of the head of the pancreas reveal no abnormality. The right kidney measures 13.8 cm. Cortical thickness and echogenicity are preserved. There is no hydronephrosis. The left kidney measures 15.2 cm. Cortical thickness and echogenicity are preserved. There is mild hydronephrosis. The visualized portions of the abdominal aorta and inferior vena cava are grossly patent and normal in caliber. IMPRESSION: 1. Mild left hydronephrosis. CT could further evaluate if the diagnosis is unclear. 2. Bilateral renal enlargement. Correlate for diabetes or other causes of renal enlargement. 3. Diffuse hepatic steatosis and hepatomegaly 4. The common duct is not well visualized but appears mildly dilated at 8 mm. Correlate for cholestasis to assess significance. CT or MRCP could further evaluate if there is persistent concern. 5. Mild splenomegaly. Electronically signed by: Ten Schumacher MD (09/08/2019 5:10 PM) [facility]
[2019-09-08 19:08] LABS: THYROID STIM HORMONE (TSH) 4.748 uIU/mL (0.358-3.740)
--- NOTE | 2019-09-08 23:16 | PN ---
DATE: 09/08/2019 SUBJECTIVE: The patient is sitting in his chair comfortably, in no apparent distress. He is feeling somewhat better today, has had no more chest pain. Continued to have shortness of breath on exertion. PHYSICAL EXAMINATION: GENERAL: On examining him, he looked well and was clearly in no apparent respiratory distress. No pallor, jaundice, cyanosis or thyromegaly. No jugular venous distention. No limb edema. VITAL SIGNS: His heart rate was 93, blood pressure was 137/93, temperature 98.1, respiratory rate was 13 and oxygen saturation was 98%. HEAD, EYES, EARS, NOSE AND THROAT: Normocephalic, atraumatic. NECK: Supple. HEART: Showed normal first and second heart sounds. No gallop or murmur. CHEST: Clear to auscultation. No crepitation or rhonchi. ABDOMEN: Distended, soft, nontender. NEUROLOGIC: He was awake, alert, responding appropriately. All cranial nerves intact. He moves extremities without difficulty. His intake and output incompletely recorded. LABORATORY DATA: His lab work this morning showed that his serum sodium was 141, potassium slightly up at 3.3 but still low. His chloride 101, bicarbonate 30, anion gap of 10, BUN 14, creatinine 1.1, estimated GFR was 72 mL per minute. His glucose was 299, calcium was 9. Total bilirubin and alkaline phosphatase normal. AST, ALT are elevated. Total protein 7.2, albumin 3.4. ASSESSMENT: 1. Chest pain. 2. Acute on chronic probable systolic congestive heart failure, hypertension, hyperlipidemia, type 2 diabetes, hypokalemia, elevated liver enzymes. PLAN: To continue with replenish his potassium. Continue with IV diuretics. His TSH and lipid profile were ordered, result of which is still pending at the time of this dictation. The patient will likely require ischemic workup as an outpatient. CHALO JIN MD DR: PEACE/martha JOB#: [id number] / [id number]
[2019-09-09] VITALS (7 sets, daily range): BP systolic 126–160; BP diastolic 79–101
[2019-09-09 00:06] LABS: HEMOGLOBIN A1C 8.1 % (4.8-5.6)
[2019-09-09 07:12] LABS: ALBUMIN 3.5 g/dL (3.4-5.0); ALBUMIN/GLOBULIN RATIO 0.9 (1.0-1.7); GFR 81.2; TOTAL BILIRUBIN 0.8 mg/dL (0.2-1.0); TOTAL PROTEIN 7.3 g/dL (6.4-8.2)
[2019-09-09 07:25] LABS: POTASSIUM 2.7 mmol/L (3.5-5.1)
[2019-09-09 07:45] LABS: HEMATOCRIT 48.6 % (39.0-53.0); HEMOGLOBIN 16.8 g/dL (13.0-17.5); RED BLOOD COUNT 5.46 x10^6/uL (4.30-5.70); RED CELL DISTRIBUTION WIDTH 15.3 % (11.5-14.5); WHITE BLOOD COUNT 8.5 x10^3/uL (4.0-11.0)
[2019-09-09] MEDS: hydrALAZINE 25 MG TABLET PO SCH ×2 (08:03→20:09)
[2019-09-09] MEDS: ASPIRIN ENTERIC COATED 81 MG TABLET.DR. PO SCH (08:03)
[2019-09-09] MEDS: METOPROLOL SUCC 24HR ER 50 MG TAB.ER.24H. PO SCH (08:04)
[2019-09-09] MEDS: LOSARTAN 50 MG TABLET. PO SCH (08:04)
[2019-09-09] MEDS: ATORVASTATIN CALCIUM 20 MG TABLET PO SCH (08:05)
[2019-09-09] MEDS: POTASSIUM CHLORIDE 20 MEQ TABLET.ER. PO SCH ×5 (08:05→20:09)
[2019-09-09] MEDS: PANTOPRAZOLE 40 MG TABLET. PO SCH (08:06)
[2019-09-09] MEDS: cloNIDine HCL 0.2 MG TABLET PO SCH ×2 (08:07→20:09)
[2019-09-09] MEDS: ENOXAPARIN 40 MG/0.4 ML SYRINGE. SQ SCH ×2 (08:07→20:10)
[2019-09-09] MEDS: FUROSEMIDE 40 MG/4 ML VIAL IVP SCH ×2 (08:08→14:27)
[2019-09-09] MEDS: hydroCHLOROthiazide 25 MG TABLET PO SCH (08:08)
[2019-09-09] MEDS: INSULIN LISPRO 300 UNITS/3 ML VIAL. SQ SCH ×3 (08:31→17:18)
--- NOTE | 2019-09-09 12:02 | EKG ---
[address] [address] Test Date: 2019-09-09 Test Time: 11:31:46 Pat Name: KRISSY CASTELLON Department: Room: [facility] 1 Gender: M [employer]: : 1975 Requested By: FERNY CLARKE Order Number: [id number] Reading MD: Measurements Intervals [place] Rate: 69 P: 0 [place]: 142 QRS: 3 QRSD: 94 T: 156 QT: 456 QTc: 490 Interpretive Statements SINUS RHYTHM R-S TRANSITION ZONE IN V LEADS DISPLACED TO THE LEFT T ABNORMALITY IN HIGH LATERAL LEADS INFERIOR LEADS PROLONGED QT ABNORMAL ECG RI6.02 No previous ECG available for comparison
--- NOTE | 2019-09-09 14:34 | PDOC ---
PROGRESS NOTES Diagnosis Problem Problems Medical Problems: (1) Chest pain Status: Acute (2) HTN (hypertension) Status: Acute (3) Hypokalemia Status: Acute Assessment 1. Chest pain with typical features concerning for unstable angina. Trop peak 0.024. 2-D echo showed normal LV systolic function. Patient has multiple cardiovascular risk factors including strong family history of premature coronary artery disease. We will proceed with cardiac catheterization and possible angioplasty on Wednesday. Risks and benefits were explained and he is ag reeable. 2. Acute on chronic probable diastolic CHF: Better compensated with diuresis. Change Lasix to by mouth tomorrow. 3. Accelerated Hypertension; better controlled since admission. Continue current medical regimen. 4. Hyperlipidemia: Continue statin therapy 5. Diabetes, II: Per IM 6. Hypokalemia: Replaced Subjective Had another brief episode of chest pain overnight, presently chest pain-free Objective Vital Signs Date Time Temp Pulse Resp B/P (MAP) Pulse Ox O2 Delivery O2 Flow Rate FiO2 09/09/19 11:36 70 16 134/91 (105) 92 Room Air 09/09/19 06:04 98.4 Intake and Output 09/09/19 07:00 Intake Total 320 ml Balance 320 ml Intake Oral 320 ml # Voids 5 Abdomen: Soft, No tenderness Heart: Regular rate Extremities: Other (trace edema) General: Alert, No acute distress HEENT: Atraumatic Neck: Supple Neuro: Normal speech Review of Relevant I have reviewed the following items cedric (where applicable) has been applied. Labs Laboratory Tests Test 09/08/19 15:15 09/08/19 17:10 09/08/19 20:18 09/09/19 06:17 Potassium Level 3.6 mmol/L (3.5-5.1) 2.7 mmol/L (3.5-5.1) *L Glucose (Fingerstick) 288 mg/dL (70-99) H 319 mg/dL (70-99) H 388 mg/dL (70-99) H White Blood Count 8.5 x10^3/uL (4.0-11.0) Red Blood Count 5.46 x10^6/uL (4.30-5.70) Hemoglobin 16.8 g/dL (13.0-17.5) Hematocrit 48.6 % (39.0-53.0) Mean Corpuscular Volume 89 fL (79-100) Mean Corpuscular Hemoglobin 31 pg (25-35) Mean Corpuscular Hemoglobin Concent 35 g/dL (31-37) Red Cell Distribution Width 15.3 % (11.5-14.5) H Platelet Count 218 x10^3/uL (140-400) Sodium Level 143 mmol/L (136-145) Chloride Level 100 mmol/L (98-107) Carbon Dioxide Level 33 mmol/L (21-32) H Anion Gap 10 (6-14) Blood Urea Nitrogen 16 mg/dL (8-26) Creatinine 1.0 mg/dL (0.7-1.3) Estimated GFR (Cockcroft-Gault) 81.2 BUN/Creatinine Ratio 16 (6-20) Glucose Level 168 mg/dL (70-99) H Calcium Level 9.0 mg/dL (8.5-10.1) Total Bilirubin 0.8 mg/dL (0.2-1.0) Aspartate Amino Transferase (AST) 77 U/L (15-37) H Alanine Aminotransferase (ALT) 152 U/L (16-63) H Alkaline Phosphatase 62 U/L (46-116) Troponin I Quantitative < 0.017 ng/mL (0-0.055) Total Protein 7.3 g/dL (6.4-8.2) Albumin 3.5 g/dL (3.4-5.0) Albumin/Globulin Ratio 0.9 (1.0-1.7) L Test 09/09/19 11:52 09/09/19 12:52 Glucose (Fingerstick) 356 mg/dL (70-99) H Potassium Level 3.6 mmol/L (3.5-5.1) Medications Current Medications Medications (Trade) Dose Ordered Sig/Morales Route PRN Reason Start Time Stop Time Status Last Admin Dose Admin Potassium Chloride (Klor-Con) 40 meq Q2H PO 09/09/19 08:00 09/09/19 10:01 DC 09/09/19 10:13 Vitals/I & O Vital Signs Date Time Temp Pulse Resp B/P (MAP) Pulse Ox O2 Delivery O2 Flow Rate FiO2 09/09/19 11:36 70 16 134/91 (105) 92 Room Air 09/09/19 06:04 98.4 I & O 09/08/19 09/08/1920 15:00 23:00 07:00 Intake Total 120 ml 200 ml 0 ml Balance 120 ml 200 ml 0 ml MARTIN PARK MD Sep 09, 2019 14:34
--- NOTE | 2019-09-10 02:10 | PN ---
DATE: 09/09/2019 SUBJECTIVE: The patient is resting, slightly propped up in bed, in no apparent respiratory distress. He denied any further episode of chest pain. He was evaluated by the Cardiology team and the plan is for him to be taken to [facility] on Wednesday. PHYSICAL EXAMINATION: GENERAL: When I examined him this afternoon, he looked well and was clearly in no apparent respiratory distress. No pallor, jaundice, cyanosis or thyromegaly. No jugular venous distention. No limb edema. VITAL SIGNS: His heart rate was 70, blood pressure was 134/91, temperature was 98, respiratory rate was 16 and oxygen saturation was 92% on room air. The rest of clinical exam is stable, has not really changed. His intake and output are incompletely recorded. LABORATORY DATA: His lab work this morning showed a white cell count of 8500, hemoglobin 16.8, hematocrit 48, MCV 89 and platelet count of 218,000. His serum sodium was 143, potassium 3.6, chloride 100, bicarbonate 33, anion gap of 10, BUN 16, creatinine 1, estimated GFR was 81 mL per minute, his glucose 168, calcium 9. Total bilirubin 0.8. AST and ALT elevated. Alkaline phosphatase normal. Total protein 7.3, albumin 3.5. ASSESSMENT AND PLAN: Chest pain consistent with unstable angina, for which the patient will be transferred to [facility] on Wednesday for cardiac catheterization. Other medical problems include hypertension, hyperlipidemia, type 2 diabetes, nonalcoholic steatohepatitis, morbid obesity, obstructive sleep apnea. Dictation Ends Here. CHALO JIN MD DR: PEACE/martha JOB#: [id number] / [id number]
[2019-09-10 05:10] VITALS: BP 163/99
[2019-09-10 08:02] LABS: CALCIUM 9.1 mg/dL (8.5-10.1); CREATININE 1.1 mg/dL (0.7-1.3); GFR 72.7
[2019-09-10] MEDS: INSULIN LISPRO 300 UNITS/3 ML VIAL. SQ SCH ×2 (08:08→11:50)
[2019-09-10] MEDS: ENOXAPARIN 40 MG/0.4 ML SYRINGE. SQ SCH ×2 (08:08→20:52)
[2019-09-10] MEDS: METOPROLOL SUCC 24HR ER 50 MG TAB.ER.24H. PO SCH (08:09)
[2019-09-10] MEDS: ASPIRIN ENTERIC COATED 81 MG TABLET.DR. PO SCH (08:10)
[2019-09-10] MEDS: POTASSIUM CHLORIDE 20 MEQ TABLET.ER. PO SCH ×3 (08:10→20:48)
[2019-09-10] MEDS: hydrALAZINE 25 MG TABLET PO SCH ×2 (08:10→20:52)
[2019-09-10] MEDS: PANTOPRAZOLE 40 MG TABLET. PO SCH (08:10)
[2019-09-10] MEDS: metFORMIN 500 MG TABLET PO SCH ×2 (08:10→15:23)
[2019-09-10] MEDS: cloNIDine HCL 0.2 MG TABLET PO SCH ×2 (08:11→20:51)
[2019-09-10] MEDS: LOSARTAN 50 MG TABLET. PO SCH (08:11)
[2019-09-10] MEDS: ATORVASTATIN CALCIUM 20 MG TABLET PO SCH (08:12)
[2019-09-10] MEDS: FUROSEMIDE 40 MG/4 ML VIAL IVP SCH ×2 (08:18→14:06)
[2019-09-10 11:22] VITALS: BP 129/73
[2019-09-10 15:05] VITALS: BP 141/85
[2019-09-10] MEDS ORDERED: DEXTROSE 50% 25 GM / 50ML DISP.SYRIN. IV PRN (16:00)
[2019-09-10 16:59] LABS: CALCIUM 8.7 mg/dL (8.5-10.1); CREATININE 1.2 mg/dL (0.7-1.3); GFR 65.8; POTASSIUM 3.3 mmol/L (3.5-5.1)
[2019-09-10] MEDS ORDERED: INSULIN LISPRO 300 UNITS/3 ML VIAL. SQ SCH (17:00)
[2019-09-10] MEDS ORDERED: POTASSIUM CHLORIDE 20 MEQ TABLET.ER. PO ONE (18:00)
[2019-09-10 20:30] VITALS: BP 140/98
--- NOTE | 2019-09-10 20:38 | PN ---
DATE: 09/10/2019 SUBJECTIVE: The patient is resting slightly propped up in bed, no apparent distress. He denied any complaints. Nursing staff did not voice any concern. He said has been chest pain free, hemodynamically stable. He is scheduled to be transferred to [facility] tomorrow morning for cardiac catheterization. PHYSICAL EXAMINATION: GENERAL: When I saw him this afternoon, he looked well and was clearly in no apparent respiratory distress. No pallor, jaundice, cyanosis or thyromegaly. __ jugular venous distension. No limb edema. VITAL SIGNS: His heart rate was 72, blood pressure 141/85, temperature was 97, respiratory rate was 14 and oxygen saturation was 97% on room air. HEAD, EYES, EARS, NOSE AND THROAT: Showed normocephalic, atraumatic. NECK: Supple. HEART: Showed normal first and second heart sounds. No gallop or murmur. CHEST: Clear to auscultation. No crepitation or rhonchi. ABDOMEN: Distended, soft, nontender. NEUROLOGIC: He is awake, alert, responding appropriately. All cranial nerves are intact. He moves extremities without difficulty. His intake was 1860, output was incompletely recorded. LABORATORY DATA: As of this morning showed a serum sodium 142, potassium 3, chloride 102, bicarbonate 30, anion gap of 10, BUN 23, creatinine 1.1, estimated GFR was 72 mL per minute, his glucose 171, calcium was 9.1. ASSESSMENT: 1. Chest pain consistent with unstable angina for which he would be transferred to [facility] tomorrow morning for cardiac catheterization. 2. Other medical problems include: A. Hypertension. B. Hyperlipidemia. C. Type 2 diabetes. D. Nonalcoholic steatohepatitis. E. Morbid obesity. F. Obstructive sleep apnea. CHALO JIN MD DR: PEACE/martha JOB#: [id number] / [id number]
[2019-09-10 20:52] VITALS: BP 140/98
== END 2019-09-10 21:30 | disposition short-term general hospital (02) | DRG 641 ==
LOC: ER 18:33 → ICU 20:44
PROVIDERS: ADMIT Internal Medicine; ATTEND Internal Medicine
DX: E87.6 Hypokalemia (principal); I20.0 Unstable angina; I50.30 Unspecified diastolic (congestive) heart failure; I11.0 Hypertensive heart disease with heart failure; E11.9 Type 2 diabetes mellitus without complications; E66.01 Morbid (severe) obesity due to excess calories; E78.00 Pure hypercholesterolemia, unspecified; E78.5 Hyperlipidemia, unspecified; G47.33 Obstructive sleep apnea (adult) (pediatric); K75.81 Nonalcoholic steatohepatitis (NASH); Z82.49 Family history of ischemic heart disease and other diseases of the circulatory system; Z83.3 Family history of diabetes mellitus; Z86.61 Personal history of infections of the central nervous system
CPT/HCPCS: 36415; 71046; 71275; 76700; 80048; 80053; 80061; 80076; 81001; 82947; 83036; 83690; 83735; 83880; 84132; 84443; 84484; 85025; 85027; 85379; 85610; 85730; 86705; 86709; 86803; 87340; 90471; 90686; 93005; 93306; 96374; J0360; J1650; J1815; J1940; Q9967; 99285-25